=== PATIENT | male | born 1985 | race Two or more races ===

== ENCOUNTER 2025-01-11 16:05 | Emergency (ER) | payer OTHER ==
[~2025-01-11] VITALS: Ht 167.6 cm; Wt 82.6 kg
[2025-01-11] MEDS ORDERED: AVIDOXY100 MG PO (17:24)
[2025-01-11] MEDS ORDERED: PEPCID AC20 MG PO (17:24)
[2025-01-11] MEDS ORDERED: CEFTRIAXONE SODIUM 2,000 MG VIAL IM ONE (17:30)
[2025-01-11] MEDS ORDERED: CEFTRIAXONE SODIUM 2,000 MG VIAL ONE (17:35)
== END 2025-01-11 18:53 | disposition home or self-care (01) ==
LOC: ER 16:05
DX: A74.9 Chlamydial infection, unspecified (principal); A54.9 Gonococcal infection, unspecified; A64 Unspecified sexually transmitted disease
CPT/HCPCS: 96372; 99282; J0696